=== PATIENT | female | born 1960 | race Caucasian/White ===

== ENCOUNTER 2021-12-06 22:10 | Emergency (ER) | payer MEDICAID ==
[~2021-12-06] VITALS: Ht 165.1 cm; Wt 84.0 kg
[2021-12-07] MEDS ORDERED: SODIUM CHLORIDE 0.9% 1,000 ML IV ONE (02:15)
[2021-12-07 02:45] LABS: BASOPHILS % 0.3 % (0.0-2.0); EOSINOPHILS % 2.6 % (0.0-5.0); HEMATOCRIT. 39.2 % (36.0-48.0); HEMOGLOBIN. 13.7 g/dL (12.0-16.0); LYMPHOCYTES % 20.9 % (20.0-50.0); MEAN CORPUSCULAR HEMOGLOBIN 31.5 pg (28.0-32.0); MEAN CORPUSCULAR VOLUME 90.2 fL (81.0-99.0); MEAN PLATELET VOLUME 8.6 fl (7.4-10.4); MONOCYTES % 6.1 % (2.0-8.0); NEUTROPHILS % 70.1 % (40.0-76.0); PLATELET 194 x1000/uL (130-400); RED BLOOD CELL COUNT 4.34 mill/uL (4.2-5.4); RED CELL DISTRIBUTION WIDTH 13.1 % (11.6-14.6)
[2021-12-07 02:56] LABS: CHLORIDE 107 mEq/L (98-107)
[2021-12-07] MEDS ORDERED: IOHEXOL-300 100 ML BOTTLE ONE (04:02)
[2021-12-07] MEDS ORDERED: HYDR-4001 MT (05:44)
[2021-12-07 06:15] VITALS: BP 124/78
== END 2021-12-07 06:17 | disposition home or self-care (01) ==
LOC: ER 22:10
DX: R07.89 Other chest pain (principal); M79.601 Pain in right arm; G89.11 Acute pain due to trauma; S20.02XA Contusion of left breast, initial encounter; I10 Essential (primary) hypertension; E03.9 Hypothyroidism, unspecified; S20.212A Contusion of left front wall of thorax, initial encounter; V49.59XA Passenger injured in collision with other motor vehicles in traffic accident, initial encounter; Y93.89 Activity, other specified; Y92.488 Other paved roadways as the place of occurrence of the external cause
CPT/HCPCS: 36415; 71045; 71260; 73060; 73090; 80048; 81025; 84484; 85025; 96360; 96361; 99285; J7030; Q9967; Z7610